=== PATIENT | male | born 1990 | race Two or more races ===

== ENCOUNTER 2024-07-22 09:53 | Emergency (ER) | payer MEDICAID ==
[~2024-07-22] VITALS: Ht 170.2 cm; Wt 65.8 kg
[2024-07-22] MEDS: IV LR 1000 ML 1,000 ML BAG IV ONE ×2 (10:30→16:40)
[2024-07-22 10:35] LABS: BASOPHILS % (AUTO) 0.2 % (0.0-2.0); EOSINOPHILS % (AUTO) 0.1 % (0.0-6.0); HEMATOCRIT 44 % (39-51); HEMOGLOBIN 14.5 g/dL (13.5-17.5); LYMPHOCYTES % (AUTO) 14.9 % (20.0-44.0); MEAN CORPUSCULAR HEMOGLOBIN 29 PG (26.0-33.0); MEAN CORPUSCULAR HGB CONC 33 g/dl (31.0-36.0); MEAN CORPUSCULAR VOLUME 87 fL (80-96); MONOCYTES # (AUTO) 0.8 K/uL (0.1-1.30); MONOCYTES % (AUTO) 11.2 % (2.0-12.0); NEUTROPHILS # (AUTO) 5.1 K/uL (1.8-8.9); NEUTROPHILS % (AUTO) 73.6 % (43.0-81.0); PLATELET COUNT (AUTO) 144 K/uL (150-450); RED BLOOD CELL COUNT(AUTO) 4.98 MIL/uL (4.5-6.0); RED CELL DISTRIBUTION WIDTH 16.8 % (11.5-15.0); WHITE BLOOD COUNT (AUTO) 6.9 K/uL (4.3-11.0)
[2024-07-22 10:44] LABS: CALCIUM, SERUM 8.3 mg/dL (8.5-10.1); CREATININE 0.6 mg/dL (0.6-1.3); POTASSIUM 3.1 mmol/L (3.5-5.1)
[2024-07-22] MEDS: Thiamine 100 MG in IV D5W 50 ML IV ONE (10:50)
[2024-07-22] MEDS ORDERED: POTASSIUM CHLORIDE 20 MEQ TAB.PRT.SR PO ONE (10:52)
[2024-07-22] MEDS: POTASSIUM CHLORIDE 20 MEQ TAB.PRT.SR PO ONE (10:54)
[2024-07-22 10:56] LABS: ALBUMIN 3.3 g/dL (3.4-5.0); BILIRUBIN,DIRECT 0.3 mg/dL (0.0-0.2); BILIRUBIN,TOTAL 0.7 mg/dL (0.2-1.0); TOTAL PROTEIN, SERUM 6.5 g/dL (6.4-8.2)
[2024-07-22 11:04] LABS: MAGNESIUM 2.5 mg/dL (1.8-2.4)
[2024-07-22 11:25] LABS: ACETAMINOPHEN <10 ug/ml (10-30); SALICYLATE 0.5 mg/dL (2.8-20.0)
[2024-07-22] MEDS: FOLIC ACID 1 MG TABLET PO ONE (11:30)
[2024-07-22] MEDS ORDERED: FOLIC ACID 1 MG TABLET ONE (12:34)
[2024-07-22 17:50] VITALS: BP 110/70; TEMP 98.6; O2SAT 97
== END 2024-07-22 17:51 | disposition home or self-care (01) ==
LOC: ER 09:57
DX: F10.129 Alcohol abuse with intoxication, unspecified (principal); Y90.8 Blood alcohol level of 240 mg/100 ml or more
CPT/HCPCS: 99285; 96365; 96361; 73060; 85025; 80048; 83690; 80076; 83735; 36415; 80143; 80320; J7060; J7120 ×4; J3411; A4223; G0480